=== PATIENT | female | born 1955 | race African-American/Black ===

== ENCOUNTER 2016-11-18 15:09 | Emergency (ER) | payer OTHER ==
[~2016-11-18] VITALS: Ht 154.9 cm; Wt 90.0 kg
[~2016-11-18 15:09] MED LIST: ADVA250A; AMLO10 PO; ASPI81 PO; ATOR10TA PO; COMBAER INH; GLUCTAB PO; ROBA500T PO; ZANTTAB9 PO
[2016-11-18 15:10] VITALS: BP 137/62; PULSE 84; RESP 14; TEMP 99; O2SAT 96
--- NOTE | 2016-11-18 20:19 | PD ---
HPI Chief Complaint: Fall Time Seen by Provider: 20:19 Travel History International Travel<30 days: No Contact w/Intl Traveler<30days: No Traveled to known affect area: No History of Present Illness HPI 61 year-old female presents to emergency department for evaluation right shoulder pain after a trip and fall on the sidewalk. Patient did not strike her head or lose consciousness. Patient states she recently had a biopsy of a lump in her right breast. She states she felt like she may have pulled something. She did see Dr. Murcia following the fall. She states that her right rib cage has been hurting since the fall. Denies any other chest pain or shortness of breath. No recent illnesses, fever, or chills. No nausea or vomiting. No focal deficits or weakness. No other symptoms to report. PFSH Past Medical History Asthma: Yes Blood Disorders: No Heart Rhythm Problems: No Cancer: Yes (RIGHT BREAST WITH XRT) Cardiac Catheterization: No Cardiovascular Problems: Yes High Cholesterol: No Chest Pain: Yes (HAD ADENOSINE STRESS TEST AND HAD RESP ARREST 03/17) Congestive Heart Failure: No Diabetes: Yes Diminished Hearing: No Endocrine: No Gastrointestinal Disorders: No Genitourinary: No Hypertension: Yes Immune Disorder: No Musculoskeletal: No Neurologic: No Psychiatric: No Reproductive: No Respiratory: Yes (copd) Myocardial Infarction: No Radiation Therapy: Yes (4 YRS AGO ,SEED IMPLANTED) Sleep Apnea: Yes Menopausal: Yes Ectopic : No Ovarian Cysts: No Tubal Ligation: No Past Surgical History AICD: No Arteriovenous Shunt: No Coronary Artery Bypass Graft: No Hysterectomy: No Insulin Pump: No Joint Replacement: No Pacemaker: No Other Surgery: Yes (RIGHT BREAST BIOPSY, HEMMORRHOID SURG) Social History Alcohol Use: No Tobacco Use: No Substance Use: No Allergies-Medications (Allergen,Severity, Reaction): Coded Allergies: Adenosine (Verified Allergy, Severe, RESPIRATORY ARREST DURING STRESS TEST., 11/18/16) Reported Meds & Prescriptions Reported Meds & Active Scripts Active Ibuprofen 600 Mg Tab 600 Mg PO Q8HR PRN Robaxin (Methocarbamol) 500 Mg Tab 500 Mg PO TID PRN Reported Zantac 75 75 Mg PO DAILY Atorvastatin 10 mg (Atorvastatin Calcium) 10 Mg Tab 40 Mg PO DAILY Glucophage XR 24 HR (Metformin HCl) 500 Mg Tab 500 Mg PO DAILY Norvasc (Amlodipine Besylate) 10 Mg Tab 10 Mg PO DAILY Aspirin 81 Mg Tab 81 Mg PO DAILY Combivent 14.7 Gm Aer 2 Puff INH Q6HPRN FOR WHEEZING Advair Disku1 250 Mcg/50 Mcg Inhp Review of Systems Except as stated in HPI: all other systems reviewed are Neg Physical Exam Narrative GENERAL: Well-nourished female patient, ambulatory no acute distress SKIN: Warm and dry. Emesis, rashes, or lesions. Breasts without hematoma, swelling, or drainage. HEAD: Atraumatic. Normocephalic. EYES: Pupils equal and round. No scleral icterus. No injection or drainage. ENT: No nasal bleeding or discharge. Mucous membranes pink and moist. NECK: Trachea midline. No JVD. CARDIOVASCULAR: Regular rate and rhythm. No murmur appreciated. RESPIRATORY: No accessory muscle use. Clear to auscultation. Breath sounds equal bilaterally. GASTROINTESTINAL: Abdomen soft, non-tender, nondistended. Hepatic and splenic margins not palpable. MUSCULOSKELETAL: No obvious deformities. No clubbing. No cyanosis. No edema. NEUROLOGICAL: Awake and alert. No obvious cranial nerve deficits. Motor grossly within normal limits. Normal speech. PSYCHIATRIC: Appropriate mood and affect; insight and judgment normal. Data Data Last Documented VS Vital Signs Date Time Temp Pulse Resp B/P Pulse Ox O2 Delivery O2 Flow Rate FiO2 11/18/16 15:10 99.0 84 14 137/62 96 Room Air Orders Ketorolac Inj (Toradol Inj) (11/18/16 20:30) Orphenadrine Inj (Norflex Inj) (11/18/16 20:30) Chest, Single Ap (11/18/16 ) Shoulder, Complete (>2vws) (11/18/16 ) [facility] Medical Decision Making Medical Screen Exam Complete: Yes Emergency Medical Condition: Yes Medical Record Reviewed: Yes Differential Diagnosis Contusion versus fracture versus sprain versus dislocation Narrative Course 7 year-old female presents to emergency department for evaluation following a trip and fall. Patient appears without distress. X-ray imaging of the right shoulder is without acute bony abnormality. Chest x-ray is without acute concern. There is linear atelectasis identified. Patient is counseled on care , provided pain control, and discharged home. She agrees to return immediately with any acute worsening of symptoms. Diagnosis Primary Impression: Right shoulder pain Qualified Code: M25.511 - Acute pain of right shoulder Additional Impressions: Low back strain Qualified Code: S39.012A - Low back strain, initial encounter Accident due to mechanical fall without injury Qualified Code: W19.XXXA - Accident due to mechanical fall without injury, initial encounter Contusion of rib on right side Qualified Code: S20.211A - Contusion of rib on right side, initial encounter Referrals: Primary Care Physician Patient Instructions: General Instructions, Musculoskeletal Pain (ED), Rib Contusion (ED) Additional Instructions: Ice and/or warm moist heat may help to alleviate symptoms Follow up with your primary care provider Return to ED with acute worsening of symptoms Med/Other Pt SpecificInfo: Prescription(s) given Scripts Ibuprofen 600 Mg [id number] Mg PO Q8HR PRN (PAIN) #30 TAB Ref 0 Prov:Leigh Corral 11/18/16 Methocarbamol (Robaxin)500 Mg [id number] Mg PO TID PRN (MUSCLE SPASM) #20 TAB Ref 0 Prov:Leigh Corral 11/18/16 Disposition: 01 DISCHARGE HOME Condition: Stable Leigh Corral Nov 18, 2016 20:19
[2016-11-18] MEDS ORDERED: KETOROLAC TROMETHAMINE 60 MG/2 ML (IM) VIAL IM ONE (20:30)
[2016-11-18] MEDS ORDERED: ORPHENADRINE INJ 60 MG/2 ML AMP IM ONE (20:30)
--- NOTE | 2016-11-18 21:44 | RADRPT ---
EXAM DATE/TIME: 11/18/2016 20:44 [facility] COMPARISON: No previous studies available for comparison. INDICATIONS : Right anterior rib pain from fall yesterday. MEDICAL HISTORY : Breast CA Stage 0 SURGICAL HISTORY : Right Breast Bx ENCOUNTER: Initial ACUITY: 1 day PAIN SCORE: 8/10 LOCATION: Bilateral chest FINDINGS: A single view of the chest demonstrates the lungs to be symmetrically aerated without evidence of mas s, infiltrate or effusion. Minimal linear atelectasis at the lung bases. The cardiomediastinal contou rs are unremarkable. Osseous structures are intact. CONCLUSION: 1. Minimal linear atelectasis at the lung bases. Exam otherwise unremarkable. Jose Carlos Villalpando MD on November 18, 2016 at 21:39 Board Certified Radiologist. This report was verified electronically.
--- NOTE | 2016-11-18 21:45 | RADRPT ---
EXAM DATE/TIME: 11/18/2016 20:45 [facility] COMPARISON: No previous studies available for comparison. INDICATIONS : Right shoulder anterior pain from a fall yesterday. MEDICAL HISTORY : Breast Ca Stage 0 SURGICAL HISTORY : Breast Bx Right ENCOUNTER: Initial ACUITY: 1 day PAIN SCORE: 8/10 LOCATION: Right Shoulder FINDINGS: Multiple view examination of the right shoulder demonstrates no evidence of fracture or dislocation. The glenohumeral and acromioclavicular joints are maintained. There is normal range of motion betwe en internal and external rotation. Bony mineralization is normal. CONCLUSION: Normal examination for a patient of this age. Jose Carlos Villalpando MD on November 18, 2016 at 21:42 Board Certified Radiologist. This report was verified electronically.
[2016-11-18] MEDS ORDERED: ROBA500T PO (21:52)
[2016-11-18] MEDS ORDERED: IBUP-232 PO (21:52)
== END 2016-11-18 22:55 | disposition home or self-care (01) ==
LOC: NEPB 15:09
DX: M25.511 Pain in right shoulder (principal); S39.012A Strain of muscle, fascia and tendon of lower back, initial encounter; S20.211A Contusion of right front wall of thorax, initial encounter; J45.909 Unspecified asthma, uncomplicated; E11.9 Type 2 diabetes mellitus without complications; I10 Essential (primary) hypertension; J44.9 Chronic obstructive pulmonary disease, unspecified; G47.30 Sleep apnea, unspecified; W18.09XA Striking against other object with subsequent fall, initial encounter
CPT/HCPCS: 71010; 73030; 96372; 99283; J1885; J2360

== ENCOUNTER 2017-11-28 10:43 | Emergency (ER) | payer OTHER, MEDICAID ==
[~2017-11-28] VITALS: Ht 154.9 cm; Wt 87.0 kg
[~2017-11-28 10:43] MED LIST changes: +IBUP-232 PO
[2017-11-28 10:46] VITALS: BP 142/84; PULSE 95; RESP 14; TEMP 98.2; O2SAT 98
[2017-11-28] MEDS ORDERED: RESP: ALBUTEROL 2.5 MG/IPRATROPIUM 0.5 MG NEB (SCH) NEB ONE (11:15)
[2017-11-28] MEDS ORDERED: predniSONE 20 MG TAB PO ONE (11:15)
--- NOTE | 2017-11-28 11:33 | RADRPT ---
EXAM DATE/TIME: 11/28/2017 11:11 [facility] COMPARISON: CHEST SINGLE AP, November 18, 2016, 20:44. INDICATIONS : Shortness of breath. MEDICAL HISTORY : Carcinoma, breast. SURGICAL HISTORY : Right breast biopsy. ENCOUNTER: Initial ACUITY: 1 month PAIN SCORE: 0/10 LOCATION: Bilateral chest FINDINGS: PA and lateral views of the chest demonstrate the lungs to be symmetrically aerated without evidence of mass, infiltrate or effusion. The cardiomediastinal contours are unremarkable. Osseous structure s are intact. CONCLUSION: No acute disease. No significant change has occurred. John Geller MD on November 28, 2017 at 11:31 Board Certified Radiologist. This report was verified electronically.
[2017-11-28] MEDS ORDERED: PRED-503 PO (11:54)
[2017-11-28] MEDS ORDERED: IPRAAER INH ×2 (11:54→12:29)
--- NOTE | 2017-11-28 11:55 | PD ---
HPI Chief Complaint: Respiratory Symptoms Time Seen by Provider: 10:54 Travel History International Travel<30 days: No Contact w/Intl Traveler<30days: No Traveled to known affect area: No History of Present Illness HPI 62-year-old with history of COPD presents emerged from complaining of shortness of breath congested cough, chest congestion, and some shortness of breath. She had flulike symptoms 2 weeks ago. Completed antibiotics 3 days ago. States despite this she still has shortness of breath chest congestion that been ongoing. She has been using her Combivent more frequently. She feels like she needs a neb treatment. History Past Medical History Narrative Medical COPD Hypertension Hyperlipidemia Diabetes Sleep apnea Menopausal: Yes Social History Alcohol Use: No Tobacco Use: No Allergies-Medications (Allergen,Severity, Reaction): Coded Allergies: adenosine (Unverified Allergy, Severe, RESPIRATORY ARREST DURING STRESS TEST., 05/26/17) Reported Meds & Prescriptions Reported Meds & Active Scripts Active Ibuprofen 600 Mg Tab 600 Mg PO Q8HR PRN Robaxin (Methocarbamol) 500 Mg Tab 500 Mg PO TID PRN Review of Systems Except as stated in HPI: all other systems reviewed are Neg Physical Exam Narrative GENERAL: Well-appearing 62-year-old woman, no acute distress. SKIN: Focused skin assessment warm/dry. HEAD: Atraumatic. Normocephalic. EYES: Pupils equal and round. No scleral icterus. No injection or drainage. ENT: No nasal bleeding or discharge. Mucous membranes pink and moist. NECK: Trachea midline. No JVD. CARDIOVASCULAR: Regular rate and rhythm. No murmur appreciated. RESPIRATORY: No respiratory distress. Wet cough. Faint wheezing. Good air movement. GASTROINTESTINAL: Abdomen soft, non-tender, nondistended. Hepatic and splenic margins not palpable. MUSCULOSKELETAL: No obvious deformities. No clubbing. No cyanosis. No edema. NEUROLOGICAL: Awake and alert. No obvious cranial nerve deficits. Motor grossly within normal limits. Normal speech. PSYCHIATRIC: Appropriate mood and affect; insight and judgment normal. Data Data Last Documented VS Vital Signs Date Time Temp Pulse Resp B/P (MAP) Pulse Ox O2 Delivery O2 Flow Rate FiO2 11/28/17 10:46 98.2 95 14 142/84 (103) 98 Orders Orders Chest, Pa & Lat (11/28/17 ) Prednisone (Deltasone) (11/28/17 11:15) Albuterol-Ipratropium Neb (Duoneb Neb) (11/28/17 11:15) MDM Medical Decision Making Medical Screen Exam Complete: Yes Emergency Medical Condition: Yes Interpretation(s) Last Impressions Chest X-Ray 11/28/17 0000 Signed Impressions: Service Date/Time: Tuesday, November 28, 2017 11:11 - CONCLUSION: No acute disease. No significant change has occurred. John Geller MD Differential Diagnosis COPD exacerbation of bronchitis, pneumonia, flu, other Narrative Course 62-year-old woman with ongoing cough following flulike symptoms. Most of her infectious symptoms are resolved with antibiotics. Still having some congested cough and some shortness of breath. With the steroids, continue bronchodilators , will defer another course of antibiotics pending any recurrence of her fevers or other infectious symptoms. Diagnosis Primary Impression: COPD exacerbation Additional Instructions: Take prednisone as prescribed. Continue Combivent every 4 hours until symptoms resolve. Return to the emergency department for any new or worsening symptoms. Follow-up with her primary doctor in the next 2-4 days. Med/Other Pt SpecificInfo: Prescription(s) given Scripts Ipratropium-Albuterol Inh (Combivent Respimat Inh) 20-100 Shelter/Act Aero 1 PUFF INH QID for Asthma Management, #1 INHALER 0 Refills Prov: Jani Aleman MD 11/28/17 Prednisone (Deltasone) 20 Mg Tab 60 MG PO DAILY, #30 TAB 0 Refills Prov: Jani Aleman MD 11/28/17 Disposition: 01 DISCHARGE HOME Condition: Stable Jani Aleman MD Nov 28, 2017 11:55
[2017-11-28] MEDS ORDERED: AMLO10 PO (12:29)
[2017-11-28] MEDS ORDERED: METF500T PO (12:29)
[2017-11-28] MEDS ORDERED: LIPI40TA PO (12:29)
== END 2017-11-28 12:28 | disposition home or self-care (01) ==
LOC: NEPD 10:43
DX: J44.1 Chronic obstructive pulmonary disease with (acute) exacerbation (principal); I10 Essential (primary) hypertension; E78.5 Hyperlipidemia, unspecified; E11.9 Type 2 diabetes mellitus without complications
CPT/HCPCS: 71046; 94664; 99283; J7512